=== PATIENT | male | born 1960 | race Caucasian/White ===

== ENCOUNTER 2018-07-05 13:41 | Inpatient (IN) | payer OTHER ==
[~2018-07-05] VITALS: Ht 185.4 cm; Wt 93.0 kg
== END 2018-07-15 14:04 | disposition home or self-care (01) | DRG 602 ==
LOC: ER 13:41 → MEDJ 21:34 → SEC-K 21:34 → MEDJ 07-06 00:36
PROC: B54NZZZ Ultrasonography of Left Upper Extremity Veins (ICD-10-PCS; principal; 2018-07-05)
PROC: BP4HZZZ Ultrasonography of Left Elbow (ICD-10-PCS; 2018-07-06)
PROC: 8E0ZXY6 Isolation (ICD-10-PCS; 2018-07-06)
DX: L03.114 Cellulitis of left upper limb (principal); A41.89 Other specified sepsis; M70.22 Olecranon bursitis, left elbow; M10.022 Idiopathic gout, left elbow